=== PATIENT | male | born 1950 | race Caucasian/White ===

== ENCOUNTER 2016-02-11 11:36 | Outpatient (CLI) | payer OTHER ==
--- NOTE | 2016-02-11 13:00 | DIAGNOSTIC IMAGING REPORT ---
PROCEDURE: XR CHEST 2 VIEW INDICATION: COUGH REACTIVE ARIWAY DISEASE SEASONAL ALLERGIES TECHNIQUE: PA and lateral views. COMPARISON: None. FINDINGS: There is a linear left lower lobe infiltrate. Right lung is clear. Heart and mediastinum are normal. Thorax is normal. IMPRESSION: 1. Linear left lower lobe infiltrate. 2. Results were called to Dr. Caldwell at 01:00 p.m.
== END 2016-02-11 23:00 ==
LOC: XR SRH 11:36
DX: R91.8 Other nonspecific abnormal finding of lung field (principal)

== ENCOUNTER 2016-03-09 13:19 | Outpatient (CLI) | payer OTHER ==
--- NOTE | 2016-03-09 13:55 | DIAGNOSTIC IMAGING REPORT ---
PROCEDURE: XR CHEST 2 VIEW INDICATION: PNEUMONIA TECHNIQUE: PA and lateral views. COMPARISON: Chest 02/10/1969 FINDINGS: Lungs are clear. Heart and mediastinum are normal. Thorax is normal. IMPRESSION: 1. Resolution of left lower lobe infiltrate.
== END 2016-03-09 23:00 ==
LOC: XR SRH 13:19
DX: R91.8 Other nonspecific abnormal finding of lung field (principal)